=== PATIENT | male | born 1955 | race Caucasian/White ===

== ENCOUNTER 2019-08-25 13:21 | Outpatient (CLI) | payer OTHER ==
[2019-08-25 14:47] LABS: BASOPHILS # (AUTO) 0.1 X10'3 (0-0.2); BASOPHILS % (AUTO) 1.3 % (0-1); EOSINOPHILS # (AUTO) 0.1 X10'3 (0-0.9); EOSINOPHILS % (AUTO) 1.6 % (0-6); LYMPHOCYTES # (AUTO) 1.4 X10'3 (1.1-4.8); LYMPHOCYTES % (AUTO) 21.1 % (21-51); MEAN CORPUSCULAR HEMOGLOBIN 31.9 PG (27.0-31.0); MEAN CORPUSCULAR HGB CONC 34.9 g/dL (33.0-36.5); MEAN CORPUSCULAR VOLUME 91.6 FL (78-98); MEAN PLATELET VOLUME 7.4 FL (7.4-10.4); MONOCYTES # (AUTO) 0.5 X10'3 (0-0.9); MONOCYTES % (AUTO) 7.3 % (2-12); NEUTROPHILS # (AUTO) 4.7 X10'3 (1.8-7.7); NEUTROPHILS % (AUTO) 68.7 % (42-75); PRE OP HEMATOCRIT 44.7 % (42.0-52.0); PRE OP HEMOGLOBIN 15.6 g/dL (14.0-17.9); PRE OP PLATELET COUNT 247 X10'3 (140-440); RED BLOOD COUNT 4.88 X10'6 (4.70-6.10); RED CELL DISTRIBUTION WIDTH 13.1 % (11.5-14.5)
[2019-08-25 15:03] LABS: ALBUMIN 3.6 G/DL (3.4-5.0); ALBUMIN/GLOBULIN RATIO 1.1 (1.1-1.5); ALKALINE PHOSPHATASE 85 IU/L (46-116); BLOOD UREA NITROGEN 7 MG/DL (7-18); BUN/CREATININE RATIO 6.5 (5.4-32.0); CALCIUM 8.7 MG/DL (8.5-10.1); CHLORIDE 105 MMOL/L (99-107); CREATININE 1.07 MG/DL (0.60-1.10); PRE OP ALT 18 U/L (30-65); PRE OP ANION GAP 4 (8-16); PRE OP AST 16 U/L (10-37); PRE OP BILIRUB, TOTAL 0.5 MG/DL (0.0-1.0); PRE OP GLUCOSE 81 MG/DL (70-104); PRE OP POTASSIUM 4.1 MMOL/L (3.4-5.1); PRE OP SODIUM 139 MMOL/L (135-145); TOTAL CARBON DIOXIDE 29.6 MMOL/L (24-32); eGFR 70 ML/MIN
[2019-08-25] MEDS ORDERED: NO HOME MEDS (15:19)
== END 2019-08-25 23:59 | disposition home or self-care (01) ==
LOC: PRE-OP 13:21 → EDSTATUS 09-02 07:30
PROVIDERS: ATTEND Orthopaedic Surgery
DX: Z01.818 Encounter for other preprocedural examination (principal); M17.11 Unilateral primary osteoarthritis, right knee
CPT/HCPCS: 36415; 80053; 85025; 87081; 93005

== ENCOUNTER 2019-12-02 10:35 | Observation (INO) | payer OTHER ==
[2019-11-26 16:08] LABS: BASOPHILS # (AUTO) 0.1 X10'3 (0-0.2); BASOPHILS % (AUTO) 1.2 % (0-1); EOSINOPHILS # (AUTO) 0.2 X10'3 (0-0.9); EOSINOPHILS % (AUTO) 2.1 % (0-6); LYMPHOCYTES # (AUTO) 1.7 X10'3 (1.1-4.8); LYMPHOCYTES % (AUTO) 22.3 % (21-51); MEAN CORPUSCULAR HEMOGLOBIN 31.6 PG (27.0-31.0); MEAN CORPUSCULAR HGB CONC 33.8 g/dL (33.0-36.5); MEAN CORPUSCULAR VOLUME 93.3 FL (78-98); MEAN PLATELET VOLUME 7.7 FL (7.4-10.4); MONOCYTES # (AUTO) 0.6 X10'3 (0-0.9); MONOCYTES % (AUTO) 7.6 % (2-12); NEUTROPHILS # (AUTO) 5.2 X10'3 (1.8-7.7); NEUTROPHILS % (AUTO) 66.8 % (42-75); PRE OP HEMATOCRIT 50.1 % (42.0-52.0); PRE OP HEMOGLOBIN 16.9 g/dL (14.0-17.9); PRE OP PLATELET COUNT 266 X10'3 (140-440); RED BLOOD COUNT 5.37 X10'6 (4.70-6.10); RED CELL DISTRIBUTION WIDTH 12.7 % (11.5-14.5)
[2019-11-26 16:10] LABS: ALBUMIN 3.9 G/DL (3.4-5.0); ALBUMIN/GLOBULIN RATIO 1.1 (1.1-1.5); ALKALINE PHOSPHATASE 89 IU/L (46-116); BLOOD UREA NITROGEN 7 MG/DL (7-18); BUN/CREATININE RATIO 6.9 (5.4-32.0); CALCIUM 8.9 MG/DL (8.5-10.1); CHLORIDE 102 MMOL/L (99-107); CREATININE 1.02 MG/DL (0.60-1.10); PRE OP ALT 20 U/L (30-65); PRE OP ANION GAP 10 (8-16); PRE OP AST 15 U/L (10-37); PRE OP BILIRUB, TOTAL 0.3 MG/DL (0.0-1.0); PRE OP GLUCOSE 94 MG/DL (70-104); PRE OP POTASSIUM 3.9 MMOL/L (3.4-5.1); PRE OP SODIUM 140 MMOL/L (135-145); TOTAL CARBON DIOXIDE 27.7 MMOL/L (24-32); TOTAL PROTEIN 7.6 G/DL (6.4-8.2); eGFR 74 ML/MIN
[~2019-12-02] VITALS: Ht 167.6 cm; Wt 68.0 kg
[2019-12-02] VITALS (18 sets, daily range): BP systolic 111–150; BP diastolic 54–91
[~2019-12-02 10:35] MED LIST: IBUP-1984 PO; VANCOMYCIN INJ 1000 MG in NORMAL SALINE 250ml IV.SOLN IV ONE; cefazolin/dext.iso 2gm/50ml 50 ML IV ONE; famotidine 20mg tablet PO ONE; ringers solution, lacted 1,000 ML IV SCH; tranexamic acid 1gm/0.7% sal. 100 ML IV ONE
[2019-12-02] MEDS ORDERED: ceFAZolin 1000mg inj ONE (11:17)
[2019-12-02] MEDS ORDERED: LIDOcaine 1% (10mg/ml) 2ml vial ONE (11:25)
[2019-12-02] MEDS ORDERED: ketorolac trometh. 30mg/ml inj. ONE (13:25)
[2019-12-02] MEDS ORDERED: epiNEPHrine 1 mg/ml inj ONE (13:25)
[2019-12-02] MEDS ORDERED: morphine 10mg/ml inj. ONE (13:26)
[2019-12-02] MEDS ORDERED: vancomycin 1,000mg inj ONE (13:26)
[2019-12-02] MEDS ORDERED: ROPIVAcaine 0.5% (5mg/ml) 30ml vial ONE ×3 (13:26→14:37)
[2019-12-02] MEDS ORDERED: tetracaine 1% (10mg/ml) pres. free inj. ONE (13:37)
[2019-12-02] MEDS ORDERED: MIDAZolam 1mg/ml 10ml vial ONE (13:39)
[2019-12-02] MEDS ORDERED: fentaNYL/PF 50MCG/1 ML 2ML syringe ONE (13:39)
[2019-12-02] MEDS ORDERED: diphenhydrAMINE 50 mg/ml inj ONE (13:57)
[2019-12-02] MEDS ORDERED: ROPIVAcaine 0.2% (10 MG/5 ML) BOLUS INJECTION ADDCANAL PRN (14:20)
[2019-12-02] MEDS ORDERED: labetalol 20mg/4ml (5mg/ml) syringe IV PRN (14:20)
[2019-12-02] MEDS ORDERED: morphine 4 MG/ML inj SYRINge IV PRN (14:20)
[2019-12-02] MEDS ORDERED: morphine 2 MG/ML inj. syringe IV PRN (14:20)
[2019-12-02] MEDS ORDERED: ringers solution, lacted 1,000 ML IV SCH (14:20)
[2019-12-02] MEDS ORDERED: ROPIVAcaine 0.2%/PF PUMP/bolus 550 ML ADDCANAL SCH (14:20)
[2019-12-02] MEDS ORDERED: ondansetron/PF 4mg/2ml inj IV PRN ×2 (14:20→15:50)
[2019-12-02] MEDS ORDERED: hydrALAZINE 20mg/ml inj. IV PRN (14:20)
[2019-12-02] MEDS ORDERED: meperidine/PF 25mg/ml syringe IV PRN ×2 (14:20)
[2019-12-02] MEDS ORDERED: calcium chloride 100 MG/1 ML inj IV ONE (14:37)
[2019-12-02] MEDS ORDERED: Thrombin (Bovine) 5,000 unit vial TP ONE (14:46)
[2019-12-02] MEDS ORDERED: MIDAZolam 5mg/5ml vial ONE (15:18)
[2019-12-02] MEDS ORDERED: diphenhydrAMINE 25mg capsule PO PRN ×2 (15:50)
[2019-12-02] MEDS ORDERED: HYDROmorphone inj. 0.5 MG/0.5 ML DISP.SYRIN IV PRN (15:50)
[2019-12-02] MEDS ORDERED: magnesium hydroxide 30ml (MOM) UD suspension PO PRN (15:50)
[2019-12-02] MEDS ORDERED: HYDROmorphone 1 mg/ml syringe IV PRN (15:50)
[2019-12-02] MEDS ORDERED: bisacodyl 10mg suppository rectal RC PRN (15:50)
[2019-12-02] MEDS ORDERED: oxyCODONE IR 5mg (immed. release) tablet PO PRN ×2 (15:50)
[2019-12-02] MEDS ORDERED: acetaminophen 325mg tablet PO PRN (15:50)
--- NOTE | 2019-12-02 16:19 | NUR ---
Received from OR via ortho bed, accompanied by Anesthesiologist Claudia and report given by Anesthesiolgist. Pt responsive to questions VS stable and 10L O2 mask sats 98%. 18G left forearm LR at 100cc/hr. Pt ahs no sensory or motor function below umbilicus. Right knee ricki dressing present with adductor canal ON-Q present and cold pack.
--- NOTE | 2019-12-02 17:39 | NUR ---
Report called to receiving nurse LUIS FERNANDO Nelson. Transferred via ortho bed. Belongings sent with patient. Glasses in chart Special Issues communicated to receiving nurse. BLL, call light within reach post op VS stable chart at bedside, patient in gown, no pain, understands purpose of transfer.
--- NOTE | 2019-12-02 18:12 | NUR ---
Problems reprioritized. Patient report given, questions answered & plan of care reviewed with Jacy GOULD.
--- NOTE | 2019-12-02 18:15 | NUR ---
RECEIVED REPORT FROM HUMZA GOULD AND ASSUMED PATIENT CARE. PATIENT IN ROOM 4020B
[2019-12-02] MEDS ORDERED: tranexamic acid inj. 680 MG in normal saline 100ml IV soln 100 ML IV ONE (19:00)
--- NOTE | 2019-12-02 19:44 | NUR ---
NEED TRANEXAMIC ACID PLEASE Addendum: 12/02/19 at 1945 by Jacy Feliciano RN PLEASE DISREGUARD
[2019-12-02] MEDS ORDERED: vancomycin/NS 1 GM ADD-VANTAGE 250 ML IV SCH (20:00)
[2019-12-02] MEDS: potassium cl 20mEq in 1/2 NS 1,000 ML IV SCH (20:46)
[2019-12-02] MEDS: gabapentin 300mg capsule PO SCH (20:48)
[2019-12-02] MEDS: acetaminophen 325mg tablet PO SCH (20:48)
[2019-12-02] MEDS ORDERED: sennosides 8.6mg tablet PO SCH (21:00)
[2019-12-03] MEDS: acetaminophen 325mg tablet PO SCH ×2 (02:00→07:27)
[2019-12-03 06:00] VITALS: BP 149/71
--- NOTE | 2019-12-03 06:01 | NUR ---
REPORT GIVEN TO HUMZA GOULD
--- NOTE | 2019-12-03 07:24 | NUR ---
Pulled aspirin at 724, had to override in [employer], to give during medication pass. Due at 829, patient took aspirin at 07.
[2019-12-03] MEDS ORDERED: aspirin 325mg tablet ONE (07:26)
[2019-12-03] MEDS: potassium cl 20mEq in 1/2 NS 1,000 ML IV SCH (07:27)
[2019-12-03] MEDS: gabapentin 300mg capsule PO SCH (07:27)
[2019-12-03] MEDS ORDERED: ASPI-1 PO (08:16)
[2019-12-03] MEDS ORDERED: aspirin 325mg tablet PO SCH (08:30)
--- NOTE | 2019-12-03 09:02 | NUR ---
Patient eager for discharge, belongings gathered and sent home with patient. PIV removed, cannula intact. Post op discharge instructions given. Smoking cessation teaching given to patient. Island dressing and cold packs provided.
[2019-12-03] MEDS ORDERED: celeCOXIB 100mg capsule PO SCH (20:00)
[2019-12-03] MEDS ORDERED: ceFAZolin 1GM/D5W- ADD-VANTAGE 50 ML IV ONE (20:00)
[2019-12-04] MEDS ORDERED: acetaminophen 325mg tablet PO PRN (15:50)
== END 2019-12-03 08:55 | disposition home or self-care (01) ==
LOC: PAS 10:35 → EDSTATUS 12:30 → ORTHO 4S 15:47
PROVIDERS: ADMIT Orthopaedic Surgery; ATTEND Orthopaedic Surgery
DX: Z03.818 Encounter for observation for suspected exposure to other biological agents ruled out (principal); M17.11 Unilateral primary osteoarthritis, right knee
CPT/HCPCS: 27447; 36415; 80053; 82948; 85025; 87081; 96365; 96366; 96367; 96368; 97110; 97116; 97161; 97530; C1713; C1776; G0378; J0171; J0690; J1200; J1885; J2001; J2250; J2270; J3010; J3370; J7050; J7120; U0003; A4215; A4618; A7000; J2795; J3480

== ENCOUNTER 2019-12-06 11:08 | Emergency (ER) | payer OTHER ==
[~2019-12-06] VITALS: Ht 167.6 cm; Wt 67.3 kg
[~2019-12-06 11:08] MED LIST changes: +ASPI-1 PO; -VANCOMYCIN INJ 1000 MG in NORMAL SALINE 250ml IV.SOLN IV ONE; -cefazolin/dext.iso 2gm/50ml 50 ML IV ONE; -famotidine 20mg tablet PO ONE; -ringers solution, lacted 1,000 ML IV SCH; -tranexamic acid 1gm/0.7% sal. 100 ML IV ONE
[2019-12-06 12:05] VITALS: BP 128/54
== END 2019-12-06 12:15 | disposition home or self-care (01) ==
LOC: ER 11:08
DX: L25.9 Unspecified contact dermatitis, unspecified cause (principal); K66.0 Peritoneal adhesions (postprocedural) (postinfection); F17.200 Nicotine dependence, unspecified, uncomplicated; Z96.651 Presence of right artificial knee joint; Z96.698 Presence of other orthopedic joint implants; Z98.890 Other specified postprocedural states; Z79.899 Other long term (current) drug therapy
CPT/HCPCS: 99281

== ENCOUNTER 2024-03-25 12:48 | Outpatient (CLI) | payer OTHER | END 2024-03-25 23:59 | disposition home or self-care (01) | LOC: MRI02 12:48 | PROVIDERS: ATTEND General Practice | DX: T84.039A Mechanical loosening of unspecified internal prosthetic joint, initial encounter (principal); M25.562 Pain in left knee; R60.0 Localized edema; Y79.2 Prosthetic and other implants, materials and accessory orthopedic devices associated with adverse incidents; Y92.89 Other specified places as the place of occurrence of the external cause | CPT/HCPCS: 73721 ==

== ENCOUNTER 2024-06-12 08:49 | Day surgery (SDC) | payer MEDICARE, BC ==
[~2024-06-12] VITALS: Ht 167.6 cm; Wt 67.5 kg
[2024-06-12] VITALS (9 sets, daily range): BP systolic 129–148; BP diastolic 54–77; PULSE 55–68; RESP 12–15; TEMP 97.1; O2SAT 94–98
[2024-06-12] MEDS ORDERED: FLO0.4C PO (09:29)
[2024-06-12] MEDS ORDERED: OMEP20CA16 PO (09:29)
[2024-06-12] MEDS ORDERED: NITR0.4T48 (09:30)
[2024-06-12] MEDS: normal saline 1,000 ML IV SCH (10:06)
[2024-06-12] MEDS: diphenhydrAMINE 25mg capsule PO PRN (10:06)
[2024-06-12 10:13] LABS: BASOPHILS # (AUTO) 0.1 X10'3 (0-0.2); BASOPHILS % (AUTO) 1.2 % (0-1); EOSINOPHILS # (AUTO) 0.1 X10'3 (0-0.9); EOSINOPHILS % (AUTO) 1.6 % (0-6); HEMATOCRIT 47.3 % (42.0-52.0); HEMOGLOBIN 16.2 g/dl (14.0-17.9); LYMPHOCYTES # (AUTO) 1.4 X10'3 (1.1-4.8); LYMPHOCYTES % (AUTO) 20.6 % (21-51); MEAN CORPUSCULAR HEMOGLOBIN 31.4 PG (27.0-31.0); MEAN CORPUSCULAR HGB CONC 34.3 g/dL (33.0-36.5); MEAN CORPUSCULAR VOLUME 91.5 FL (78-98); MEAN PLATELET VOLUME 7.7 FL (7.4-10.4); MONOCYTES # (AUTO) 0.5 X10'3 (0-0.9); MONOCYTES % (AUTO) 6.9 % (2-12); NEUTROPHILS # (AUTO) 4.8 X10'3 (1.8-7.7); NEUTROPHILS % (AUTO) 69.7 % (42-75); PLATELET COUNT 206 X10'3 (140-440); RED BLOOD COUNT 5.17 X10'6 (4.70-6.10); WHITE BLOOD COUNT 6.9 X10'3 (4.5-11.0)
[2024-06-12 10:16] LABS: ALBUMIN 3.7 G/DL (3.4-5.0); ANION GAP 5 (8-16); BLOOD UREA NITROGEN 9 MG/DL (7-18); BUN/CREATININE RATIO 10.3 (10.0-20.0); CALCIUM 9.3 MG/DL (8.5-10.1); CHLORIDE 106 MMOL/L (99-107); CREATININE 0.87 MG/DL (0.60-1.10); GLUCOSE 100 MG/DL (70-104); POTASSIUM 5.4 MMOL/L (3.5-5.1); SODIUM 142 MMOL/L (135-145); TOTAL CARBON DIOXIDE 31.1 MMOL/L (24-32); eCRCL 73 ML/MIN; eGFR 87 ML/MIN
[2024-06-12 10:18] LABS: PROTHROMBIN TIME 10.6 SECONDS (9.0-12.0)
[2024-06-12] MEDS: sodium bicarbonate 1meq/ml syr 150 ML in dextrose 5%-water 1,000 ML IV ONE (11:57)
[2024-06-12] MEDS ORDERED: LIDOcaine 1% (10mg/ml) 2ml vial ONE (12:40)
[2024-06-12] MEDS ORDERED: verapamil 2.5 mg/ml inj IV ONE (12:40)
[2024-06-12] MEDS ORDERED: iohexol 350MG/ML 100ml bottle IV ONE (12:41)
[2024-06-12] MEDS ORDERED: midazolam 1 mg/ML 2ml injection ONE ×2 (12:41→13:26)
[2024-06-12] MEDS ORDERED: iohexol 350 MG/ML 50ML vial IV ONE (12:41)
[2024-06-12] MEDS ORDERED: fentaNYL/PF 50MCG/1 ML 2ML syringe ONE (12:41)
[2024-06-12] MEDS ORDERED: heparin 1,000unit/ml 10ml vial 10 ML ONE (12:41)
[2024-06-12] MEDS ORDERED: nitroGLYCERIN 500mcg/5mL D5W 5 ML IV ONE (12:42)
[2024-06-12] MEDS ORDERED: ondansetron/PF 4mg/2ml inj IV PRN (14:15)
[2024-06-12] MEDS ORDERED: HYDROcodone/acetaminophen 5mg/325mg tablet PO PRN (14:20)
[2024-06-12] MEDS ORDERED: HYDROcodone/acetaminophen 10/325mg tab PO PRN (14:20)
== END 2024-06-12 17:20 | disposition home or self-care (01) ==
LOC: SSTAY O 08:49
PROVIDERS: ATTEND Internal Medicine Cardiovascular Disease
DX: I25.119 Atherosclerotic heart disease of native coronary artery with unspecified angina pectoris (principal); Z86.73 Personal history of transient ischemic attack (TIA), and cerebral infarction without residual deficits
CPT/HCPCS: 36415; 80048; 83735; 85025; 85610; 93005; 93458; 99152; A6258; A6402; C1769; C1894; J1644; J2003; J2250; J3010; J3490; J7030; J7070; Q0163; Q9967; Z7610; 99153

== ENCOUNTER 2025-02-15 06:35 | Day surgery (SDC) | payer OTHER, MEDICARE, BC ==
[2025-02-15] VITALS (9 sets, daily range): BP systolic 108–158; BP diastolic 61–83; PULSE 55–66; RESP 14–17; TEMP 98; O2SAT 94–100
[~2025-02-15] VITALS: Ht 167.6 cm; Wt 65.5 kg
[~2025-02-15 06:35] MED LIST changes: -ASPI-1 PO; +NITR0.4T48; +OMEP20CA16 PO; +TAMS-55 PO
--- NOTE | 2025-02-15 07:29 | ELECTROCARDIOGRAPH REPORT ---
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 ANNA Dudley Measurements Intervals Alpine Rate: 52 P: 54 SC: 160 QRS: -26 QRSD: 91 T: 261 QT: 401 QTc: 373 Interpretive Statements Sinus rhythm Borderline left axis deviation Abnormal T, consider ischemia, diffuse leads Electronically Signed On 02-15-2025 12:31:[address] ANNA Dudley Please click the below link to view image of tracing.
[2025-02-15] MEDS: sodium bicarbonate 1meq/ml syr 150 ML in dextrose 5%-water 1,000 ML IV ONE (08:18)
[2025-02-15 08:47] LABS: MEAN PLATELET VOLUME 8.0 FL (7.4-10.4); RED CELL DISTRIBUTION WIDTH 13.1 % (11.5-14.5)
[2025-02-15 08:56] LABS: CREATININE 0.70 MG/DL (0.60-1.10); TOTAL CARBON DIOXIDE 25.4 MMOL/L (24-32); eCRCL 90 ML/MIN; eGFR > 90 ML/MIN
[2025-02-15 08:57] LABS: INR 1.0 INR
[2025-02-15] MEDS ORDERED: midazolam 1 mg/ML 2ml injection ONE ×3 (09:30→10:37)
[2025-02-15] MEDS ORDERED: heparin 1,000unit/ml 10ml vial 10 ML ONE (09:30)
[2025-02-15] MEDS ORDERED: LIDOcaine 1% 30ml preserv. free vial ONE (09:30)
[2025-02-15] MEDS ORDERED: fentaNYL/PF 50MCG/1 ML 2ML syringe ONE (09:30)
[2025-02-15] MEDS ORDERED: clopidogrel 300mg tablet ONE (10:51)
[2025-02-15] MEDS ORDERED: ondansetron/PF 4mg/2ml inj IV PRN (11:30)
[2025-02-15] MEDS ORDERED: HYDROcodone/acetaminophen 5mg/325mg tablet PO PRN (11:35)
[2025-02-15] MEDS ORDERED: HYDROcodone/acetaminophen 10/325mg tab PO PRN (11:35)
--- NOTE | 2025-02-15 12:08 | CARDIOLOGY REPORT ---
DATE OF SERVICE: 02/15/2025 DICTATING PHYSICIAN: VALERIE DELGADO DO CARDIAC CATHETERIZATION REPORT REFERRING PHYSICIAN: Laci Savage MD. CLINICAL HISTORY: This 69-year-old man has frequent rest foot pain, upper thigh pain, and claudication in the calf with minimal amounts of walking. 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 There was no obstructive disease on the left. PROCEDURES PERFORMED: * Left common femoral arterial access. * Placement of a crossover catheter in the contralateral/right common femoral artery. * Right/contralateral femoral and popliteal arteriography. * Percutaneous balloon angioplasty (distal right/contralateral superficial femoral artery). * Stent placement to distal/contralateral right superficial femoral artery. * Drug-eluting balloon angioplasty to distal right/contralateral superficial femoral artery. * Percutaneous arteriotomy closure (Perclose). * A 60-minutes conscious sedation and supervision. DESCRIPTION OF PROCEDURE: The patient was sedated with fentanyl and Versed. He was then prepared and draped in the usual manner. The left femoral area was infiltrated with 1% lidocaine using a micropuncture set and a Seldinger technique. A 7-Ethiopian sheath was placed in the common femoral artery, 3,000 units of heparin were given. A 6-Ethiopian ELIAS catheter was placed at the iliac bifurcation with the tip directed into the right/contralateral common iliac artery. A [place] Advantage wire was then passed through the ELIAS catheter down the right iliac system and well down into the right superficial femoral artery. The ELIAS catheter and a short 7-Ethiopian sheath were removed and a 45-cm destination sheath was passed over the [place] Advantage wire and positioned in the right common femoral artery. Arteriography of the superficial femoral, the profunda femoris artery, and the popliteal artery were then performed. An occlusion in the distal SFA was observed with reconstitution at the beginning of the popliteal artery. A 6-Ethiopian multipurpose catheter was passed over the wire and positioned at the point of occlusion within the SFA. The guidewire was then passed subintimally, but easily re-entered in the proximal popliteal. The section of occlusion was then dilated with a 6 x 100 mm balloon. The residual stenosis was covered with a 6 x 120 mm Medtronic self-expanding stent and the stent itself was postdilated for 3 minutes using a 6 x 120 Medtronic drug-eluting stent. Final arteriography was performed. The sheath was removed and the access site was successfully Perclosed. RESULTS: The right distal superficial femoral artery was totally occluded over a segment of approximately 80 mm. the common femoral and profunda femorus arteries were free of obstructive disease. The distal SFA lesion was successfully reopened, dilated,stented, and finally treated with a drug-eluting balloon inflation. Final arteriography demonstrated no significant residual stenosis in this area of previous occlusion and brisk runoff distally. RECOMMENDATIONS: Ongoing medical therapy. VALERIE DELGADO DO TID: [id number] RECEIPT: [id number] [facility]
== END 2025-02-15 14:30 | disposition home or self-care (01) ==
LOC: SSTAY O 06:35
PROVIDERS: ATTEND Internal Medicine Cardiovascular Disease
DX: I73.9 Peripheral vascular disease, unspecified (principal); R94.31 Abnormal electrocardiogram [ECG] [EKG]
CPT/HCPCS: 36415; 37226; 75710; 80048; 83735; 85025; 85610; 93005; 99152; 99153; C1760; C1876; J1644; J2003; J2250; J3010; J3490; J7030; J7070; Q0163; Q9967; A6258; C1725; C1894; C2623